=== PATIENT | male | born 1950 | race Hispanic/Latino ===

== ENCOUNTER 2023-08-19 05:49 | Day surgery (SDC) | payer OTHER ==
[2023-08-18 11:00] VITALS: BP 125/76; PULSE 82; RESP 19
[2023-08-19] VITALS (11 sets, daily range): BP systolic 89–124; BP diastolic 59–85; PULSE 52–62; RESP 13–20
[~2023-08-19] VITALS: Ht 167.6 cm; Wt 85.0 kg
[~2023-08-19 05:49] MED LIST: CHOL500051 PO; DULO30CA52 PO; FURO20TA4 PO; LISI10TA24 PO; METO-409 PO; SIMV-46 PO; TAMS-1 PO
[2023-08-19] MEDS ORDERED: 0.9%NACL 1000ML 1,000 ML IV ONE (06:21)
[2023-08-19] MEDS ORDERED: PROPOFOL 10 MG/ML 20ML VIAL IV ONE (07:51)
[2023-08-19] MEDS ORDERED: LIDOCAINE HCL 1% 20 ML VIAL ONE (07:52)
== END 2023-08-19 09:05 | disposition home or self-care (01) ==
LOC: ENDO 05:49 → DAH 05:49 → ENDO 09:05
PROVIDERS: ATTEND Internal Medicine Gastroenterology
DX: R13.10 Dysphagia, unspecified (principal); K21.9 Gastro-esophageal reflux disease without esophagitis; K31.89 Other diseases of stomach and duodenum; I10 Essential (primary) hypertension; E78.5 Hyperlipidemia, unspecified; F41.9 Anxiety disorder, unspecified; M19.90 Unspecified osteoarthritis, unspecified site; K64.0 First degree hemorrhoids; Z90.49 Acquired absence of other specified parts of digestive tract; Z98.890 Other specified postprocedural states; Z86.010 Personal history of colon polyps
CPT/HCPCS: 43239; 43248; J7030 ×2; J2704; A4620; A4215; A4223; A4222; A4221; A4663; A4606; J3490

== ENCOUNTER → 2024-01-07 | Outpatient (CLI) | payer OTHER | END | disposition home or self-care (01) | LOC: RAH 12:44 | PROVIDERS: ATTEND Student in an Organized Health Care Education/Training Program | DX: M47.26 Other spondylosis with radiculopathy, lumbar region (principal); M51.16 Intervertebral disc disorders with radiculopathy, lumbar region; M48.061 Spinal stenosis, lumbar region without neurogenic claudication; M24.28 Disorder of ligament, vertebrae | CPT/HCPCS: 72148 ==

== ENCOUNTER → 2024-09-04 | Outpatient (CLI) | payer OTHER ==
[2024-09-04 15:38] LABS: CREATININE 0.9 mg/dL (0.5-1.3); POTASSIUM 3.8 mmol/L (3.5-5.1)
== END | disposition home or self-care (01) ==
LOC: LAB 14:28
PROVIDERS: ATTEND Internal Medicine Cardiovascular Disease
DX: Z01.812 Encounter for preprocedural laboratory examination (principal); R94.31 Abnormal electrocardiogram [ECG] [EKG]
CPT/HCPCS: 36415; 80048

== ENCOUNTER → 2024-09-20 | Outpatient (CLI) | payer OTHER ==
[~2024-09-20] MED LIST changes: +IOHEXOL 350 MG/ML 100ML INFUS..BTL IV ONE
--- NOTE | 2024-09-20 14:59 | HMCIMG ---
CT CARDIAC ANGIO W/CONT. CCTA HISTORY: Abnormal EKG COMPARISON: None TECHNIQUE: Multiple sequential axial images of the chest were obtained along with the CT angiogram of the chest study. Patient was given 100 cc of Omnipaque through intravenous route. FINDINGS: There is no evidence of pulmonary nodule or parenchymal disease. No pleural effusion or pericardial effusion is seen. There is no evidence of pneumothorax. There are normal size mediastinal and hilar lymph nodes. The heart is not enlarged. Degenerative changes of the thoracolumbar spine are present. IMPRESSION: 1. No evidence of pulmonary nodule or effusion is seen. Please see CT angiogram report of coronary arteries.
--- NOTE | 2024-09-26 07:42 | CARDIOLOGY ---
RAD REPORT: CORNARY CT ANGIO RADIOLOGY REPORT: CORONARY CT ANGIOGRAPHY DATE: Sep 26, 2024 QUALITY: Excellent CLINICAL HISTORY AND INDICATION: [chest pain ] TECHNIQUE: After obtaining a preliminary acid extractor image, contrast imaging performed on an Aquillon [id number] scanner. A dedicated, limited window, coronary imaging protocol was used, with single breath-hold, retrospective ECG gating, and automated arrhythmia rejection. 100 cc of low osmolar contrast agent: Omnipaque 350 was delivered via a 18-gauge IV catheter in the right antecubital fossa, using a power injector and followed by 60 cc of normal saline bolus as a chaser. Collimated images were reformatted at 0.5 mm intervals, and sent to an offline independent workstation for interpretation, using 3D anatomic reconstructions: Curved multiplanar reconstructions, maximum intensity projections, and multiplanar imaging. No metoprolol was administered prior to scanning due to low baseline heart rate. No SL nitroglycerin was given. CORONARY ARTERY DESCRIPTIONS: The coronary arteries arise in normal position. Left main coronary artery: Normal caliber vessel that bifurcates into the LAD and LCx. There is calcified plaque in the distal left main with 20% stenosis. Left anterior descending coronary artery: Normal caliber vessel and gives rise to diagonal and septal branches. There is calcified plaque in the proximal LAD with 20-30% stenosis. There is mixed calcified and noncalcified plaque in the mid LAD with 50% stenosis. Left circumflex coronary artery: Normal caliber, nondominant and gives rise to a large OM branch. There is non-calcified plaque in the proximal LCx with 90% stenosis. Right coronary artery: Large, dominant vessel giving rise to the PL and PDA branches. There is mixed calcified and noncalcified plaque in the distal RCA with 20-30% stenosis. CAD-RADs: 4A, severe stenosis. Recommend left heart catheterization. Findings reported to Dr Bonilla and his team. Thoracic Aorta: Normal diameter. Neetu Quintana MD Cardiovascular Disease [facility] [address] NEETU QUINTANA MD Sep 26, 2024 07:42
== END | disposition home or self-care (01) ==
LOC: RAH 11:50
PROVIDERS: ATTEND Internal Medicine Cardiovascular Disease
DX: R07.9 Chest pain, unspecified (principal); R94.31 Abnormal electrocardiogram [ECG] [EKG]; M47.815 Spondylosis without myelopathy or radiculopathy, thoracolumbar region
CPT/HCPCS: 75574; Q9967

== ENCOUNTER 2024-10-30 06:44 | Day surgery (SDC) | payer OTHER ==
[2024-10-26 12:08] LABS: BASOPHILS # (AUTO) 0.05 K/uL (0.00-0.20); BASOPHILS % (AUTO) 1.1 % (0.0-5.0); EOSINOPHILS % (AUTO) 4.3 % (0.0-8.0); HEMATOCRIT 46.6 % (42-54); IMMATURE GRANULOCYTE ABSOLUTE 0.06 K/uL (0-1); LYMPHOCYTES # (AUTO) 1.2 K/uL (1.0-4.8); LYMPHOCYTES % (AUTO) 26.8 % (21.0-51.0); MEAN CORPUSCULAR HEMOGLOBIN 30.4 pg (27.0-33.0); MEAN CORPUSCULAR VOLUME 92.1 fL (79-99); MONOCYTES # (AUTO) 0.3 K/uL (0.1-1.0); MONOCYTES % (AUTO) 7.4 % (3.0-13.0); NEUTROPHILS # (AUTO) 2.7 K/uL (1.8-7.7); NEUTROPHILS % (AUTO) 59.1 % (40.0-77.0); PLATELET COUNT (AUTO) 186 K/uL (130-400); RED BLOOD CELL COUNT(AUTO) 5.06 MIL/uL (4.50-6.20); RED CELL DISTRIBUTION WIDTH 12.8 % (11.0-15.5); WHITE BLOOD COUNT (AUTO) 4.6 K/uL (4.8-10.8)
[2024-10-26 12:11] LABS: APPEARANCE,URINE CLEAR (CLEAR); BILIRUBIN,URINE NEGATIVE (NEGATIVE); COLOR,URINE LIGHT-YELLOW (YELLOW); GLUCOSE, URINE (UA) NEGATIVE (NEGATIVE); KETONES,URINE NEGATIVE (NEGATIVE); LEUKOCYTE ESTERASE ,URINE NEGATIVE Leu/uL (NEGATIVE); NITRATE,URINE NEGATIVE (NEGATIVE); PROTEIN,URINE NEGATIVE (NEGATIVE); UROBILINOGEN,URINE 0.2 mg/dL (0.2-1.0)
[2024-10-26 12:12] VITALS: BP 114/64; PULSE 69; RESP 14; TEMP 98.4
[2024-10-26 12:19] LABS: ADD UA MICROSCOPIC YES
[2024-10-26 12:24] LABS: INR 1.03 (0.85-1.15); MUCUS,URINE RARE LPF (None Seen); PROTHROMBIN TIME 11.5 SEC (9.6-11.6); RBC,URINE 0-1 /HPF (0-1); WBC,URINE 0-1 /HPF (0-1)
[2024-10-26 12:29] LABS: CREATININE 0.9 mg/dL (0.5-1.3)
[2024-10-26 12:36] LABS: B-TYPE NATRIURETIC PEPTIDE 9 pg/mL (0-100)
--- NOTE | 2024-10-26 13:49 | EKG ---
[facility] Test Date: 2024-10-26 Test Time: 12:41:56 Pat Name: FRANCOISE SOLANO Department: [facility] Room: Gender: M Seat Nailer: [id number] : 1950 Requested By: FRANCOISE BRADSHAW Order Number: [id number] Reading MD: Waqar Frazier Measurements Intervals [place] Rate: 60 P: 56 AR: 179 QRS: -50 QRSD: 96 T: 41 QT: 387 QTc: 387 Interpretive Statements Sinus rhythm Left anterior fascicular block Low voltage, precordial leads No previous ECG available for comparison RSR' IN V1 OR V2, PROBABLY NORMAL VARIANT Electronically Signed On 10-26-2024 16:20:54 SENIOR FIELD SERVICE ENGINEER by Waqar Frazier Please click the below link to view image of tracing.
--- NOTE | 2024-10-26 17:09 | HMCIMG ---
CHEST 1VW HISTORY: Preop COMPARISON: None FINDINGS: A frontal projection of the chest was obtained. Prominent interstitial markings are seen with possible superimposed infiltrates. The heart is normal in size. Degenerative changes are seen. No evidence of aortic calcification is seen. IMPRESSION: 1. Prominent interstitial markings are seen with possible superimposed infiltrates.
--- NOTE | 2024-10-27 13:16 | NUR ---
report reported cxr to garcía schafer. ok to proceed
[2024-10-30] VITALS (11 sets, daily range): BP systolic 103–125; BP diastolic 60–77; PULSE 53–69; RESP 11–18; TEMP 97–97.7
[~2024-10-30] VITALS: Ht 167.6 cm; Wt 83.2 kg
[~2024-10-30 06:44] MED LIST changes: -CHOL500051 PO; -FURO20TA4 PO; +GABA300S3 PO; -IOHEXOL 350 MG/ML 100ML INFUS..BTL IV ONE; +ISOS30TA92 PO; +MECL25TA39 PO; +MELA5CAP PO; +METF-444 PO; +SUCR1TAB2 PO
[2024-10-30] MEDS: 0.9%NACL 1000ML 1,000 ML IV SCH (07:44)
[2024-10-30] MEDS ORDERED: IOHEXOL 350 MG/ML 100ML INFUS..BTL IV ONE (11:27)
[2024-10-30] MEDS ORDERED: LIDOCAINE HCL 400MG/20ML VIAL ONE (11:27)
[2024-10-30] MEDS ORDERED: HEParin 10,000 UNIT/10ML (1,000 UNIT/ML) VIAL ONE (11:28)
[2024-10-30] MEDS ORDERED: NITROGLYCERIN 50MG VIAL ONE (11:28)
[2024-10-30] MEDS ORDERED: HEParin-NS 1,000 UNIT/500 ML 1,000 ML IV ONE (11:28)
[2024-10-30] MEDS ORDERED: FENTanyl CITRate PF 50 MCG/1 ML 2ML VIAL ONE (11:55)
[2024-10-30] MEDS ORDERED: MIDAZOLAM HCL 1 MG/ML 2ML VIAL ONE (11:55)
[2024-10-30] MEDS ORDERED: BIVALIRUDIN 250 MG/VIAL IV ONE (11:59)
[2024-10-30] MEDS ORDERED: ATROPINE 1MG SYG IVP ONE (12:22)
[2024-10-30] MEDS ORDERED: ASPIRIN 81MG CHEW TAB ONE (13:05)
[2024-10-30] MEDS ORDERED: cloPIDOgrel 300MG TAB ONE (13:05)
--- NOTE | 2024-10-30 13:16 | PRN ---
PROCEDURES: 1. Right common femoral arterial sheath placement. 2. Selective coronary angiogram. 3. Left heart catheterization. 4. Left ventriculogram. 5. Angioplasty and stent placement to mid left circumflex artery with the use of a 3 mm x 22 mm Medtronic resolute francisco stent deployed to 3.10 mm 6. Conscious sedation INDICATION: Unstable angina Abnormal coronary CT angiogram DESCRIPTION OF PROCEDURE: The patient was brought to the catheterization suite and prepped and draped in sterile fashion. IV was started, and not already in place and both groins were exposed for arterial access. 1% lidocaine was used f or local anesthesia and then a micropuncture kit was used to gain access once free-flowing blood was seen, modified Seldinger technique was utilized to place a 6 Welsh sheath into the right common femoral artery. Next, preformed JL4 and JR 4 catheters were used to selectively engage the [place] coronary vessels and multiple hand contrast injections were performed in different views to define the coronary anatomy. See interventional report below Next a the end of the case, a 6 Welsh angled pigtail was used to cross the aortic valve. Pressure measurements were obtained in the left ventriculogram was in a 30 ANTONIO position. Next, pullback method was performed. FINDINGS: The left main artery bifurcates into LAD and left circumflex and is free of any significant disease with calcification noted. The proximal mid LAD has calcification noted. There are multiple diagonal branch vessels that, high off the LAD with the areas of stenosis in the mid LAD of approximately 40-50% and distal LAD of 50-60% The left circumflex artery was a large vessel nondominant system with a 99% stenosis noted in its mid section. The right coronary artery is a dominant system giving rise to the PDA and RPL. There was no evidence of significant coronary atherosclerosis in the RCA or daughter branches. LVEDP is a 12 mm Hg There was no evidence of aortic stenosis or mitral regurgitation. Ejection fractions estimated at 60% Resting wall motion appears to be normal INTERVENTIONAL REPORT: After diagnostic angiography was performed it was felt intervention should be done to left circumflex artery therefore a six Welsh Q 3.5 guide catheter was placed in the left coronary system. Next a 0.014 in run-through wire was placed in the distal ongoing obtuse marginal branch. Next a 2.5 mm x 15 mm balloon was then used to pre dilate the mid left circumflex lesion. This was taken up to 14 atmospheres for approximately 30 seconds. This was then removed and a 3 mm x 22 mm resolute francisco stent was then placed into the mid LAD and deployed to 3.10 mm. Follow up contrast injection well events of dissection or perforation with LINH three flow noted in vessel. At end of case sheath shot was done in Perclose device was used for closure of arteriotomy site. RECOMMENDATIONS: Patient will be monitored in the outpatient setting for 5 hours IV hydration will be noted. No heavy lifting 5 lb or greater for three days No driving for 24 hours Discharge home at approximately 6:00 p.m. Follow up with Dr. Bonilla in two weeks Continue dual antiplatelet therapy uninterrupted for 12 months FRANCOISE BONILLA MD Oct 30, 2024 13:16
[2024-10-30] MEDS ORDERED: DEXTROSE 50%-WATER 50 ML DISP.SYRIN IV PRN (13:30)
[2024-10-30] MEDS ORDERED: NITROGLYCERIN 0.4 MG SL TAB SL PRN (13:30)
[2024-10-30] MEDS ORDERED: GLUCAGON 1MG KIT 1 MG ML IM PRN (13:30)
[2024-10-30] MEDS ORDERED: 0.9%NACL 1000ML 1,000 ML IV SCH (13:30)
[2024-10-30] MEDS ORDERED: metoPROLOL tartRATE 1 MG/ML 5ML VIAL IV PRN (13:30)
--- NOTE | 2024-10-30 13:45 | NUR ---
VOIDED VOIDED 200 CC IN URINAL. CLEAR, YELLOW URINE.
--- NOTE | 2024-10-30 14:15 | NUR ---
RECEIVED SBAR REPORT FROM CHELSEA BRADSHAW LVN AT THIS TIME, WILL ASSUME CARE OF PATIENT. RIGHT GROIN ASSESSED, SOFT, NON-TENDER. DRESSING CLEAN, DRY & INTACT. PATIENT AND SPOUSE AT BEDSIDE REMINDED OF IMPORTANCE OF CONTINUED BEDREST AND MAINTAINING RIGHT LEG STRAIGHT. BOTH VERBALIZED UNDERSTANDING. BED AT LOWEST POSITION, CALL JOHNSON WITHIN REACH.
[2024-10-30] MEDS ORDERED: INSULIN humuLIN R 100 UNIT/ML 3ML SQ SCH (16:30)
[2024-10-31] MEDS ORDERED: cloPIDOgrel 75MG TAB PO SCH (09:00)
== END 2024-10-30 19:15 | disposition home or self-care (01) ==
LOC: DAH 06:44
PROVIDERS: ATTEND Internal Medicine Cardiovascular Disease
DX: R93.1 Abnormal findings on diagnostic imaging of heart and coronary circulation (principal); I25.110 Atherosclerotic heart disease of native coronary artery with unstable angina pectoris; I25.83 Coronary atherosclerosis due to lipid rich plaque; I10 Essential (primary) hypertension; I25.84 Coronary atherosclerosis due to calcified coronary lesion; E78.5 Hyperlipidemia, unspecified; E11.9 Type 2 diabetes mellitus without complications; E66.9 Obesity, unspecified; M19.90 Unspecified osteoarthritis, unspecified site; R07.9 Chest pain, unspecified; R06.02 Shortness of breath; R94.31 Abnormal electrocardiogram [ECG] [EKG]; I73.9 Peripheral vascular disease, unspecified; Z79.84 Long term (current) use of oral hypoglycemic drugs; Z90.49 Acquired absence of other specified parts of digestive tract; Z87.898 Personal history of other specified conditions; Z82.49 Family history of ischemic heart disease and other diseases of the circulatory system; Z83.3 Family history of diabetes mellitus; Z88.8 Allergy status to other drugs, medicaments and biological substances; Z96.652 Presence of left artificial knee joint; Z68.29 Body mass index [BMI] 29.0-29.9, adult; Z79.899 Other long term (current) drug therapy
CPT/HCPCS: 80048; 83880; 85025; 85610; 85730; 81001; 36415; 71045; 93005; 93458; 82948 ×2; A4223 ×3; C1887; C1894 ×3; C1725; C1874; C1760; C1769; Q9965 ×2; J3010; J3490 ×2; J7030; J2250; J1644; J0583; Q9967; A4215; A4222; A4221; A4663; A4216; A4606; C9600; 99156; 99157; J0461

== ENCOUNTER → 2024-11-02 | Outpatient (CLI) | payer OTHER ==
--- NOTE | 2024-11-06 13:57 | HMCSR ---
APPROVED REPORT EXAM: Two-dimensional and M-mode echocardiogram with Doppler and color Doppler. INDICATION ICD: R07.9 Chest pain Abnormal ECG 2D Dimensions RVDd2.9 cmLVEF(%)57.0 (>50%)LVED Vol(simp.)95.0 mL IVSd1.2 (0.7-1.1cm)FS(%)30 %LVES Vol(simp.)40.0 mL LVDd4.8 (3.8-5.6cm)Ao Root(2D)3.5 (2.0-3.7cm)LVEF(%, simp.)58 % PWd1.2 (0.7-1.1cm)LVOT diam2.2 (1.8-2.4cm)LA ESV INDEX (BP)18.12 mL/m2 LVDs3.3 (2.5-4.0cm)IVC diam1.6 cm Deformation Strain Apical 4-15.6 % Apical 2-15.9 % Apical 3-16.0 % Global Strain-15.8 % Aortic Valve AoV Vmax1.5 m/Anusha Peak GR8.7 mmHgLVOT Vmax1.0 m/s AoV VTI0.3 mAo Mean GR5.1 mmHgLVOT VTI0.20 m VANNA (VMAX)2.6 cm2Al P1/2T831 msAVA (VTI) 2.6 cm2 Mitral Valve MV E Vmax62.8 cm/sDECEL Lvsj377 ms MV A Vmax80.9 cm/sP 1/2 T80 ms E/A ratio0.8MVA (PHT)2.8 cm2 TDI E/E' Ohcvyu56.6E/E' Lbavvwm52.3 Pulmonary Valve PV Vmax1.1 m/sPV VTI0.23 mPV Mean GR2 mmHg PV Peak GR5.2 mmHg Tricuspid Valve TR Vmax2.0 m/sRAP (EST) 3 wsEdURBU97.4 mmHg TR Peak GR16.4 mmHg Left Ventricle The left ventricle structure and function is normal. There is normal LV segmental wall motion. There is mild concentric left ventricular hypertrophy. LVEF is 55-60%. Grade 1 diastolic dysfunction Right Ventricle The right ventricle is normal size. The right ventricular systolic function is normal. Atria The left atrium size is normal. The right atrium size is normal. Aortic Valve Aortic valve is trileaflet. Aortic valve leaflets are sclerotic but open well. Trace aortic regurgita tion. There is no aortic valvular stenosis. Mitral Valve Mitral valve leaflets are mildly sclerotic but open well. Mitral regurgitation is trace. There is no mitral valve stenosis. Tricuspid Valve The tricuspid valve leaflets appear normal. There is trace tricuspid regurgitation. Pulmonic Valve Pulmonic valve is not well visualized. There is trace pulmonic valvular regurgitation. Great Vessels The aortic root is normal in size. The IVC is normal in size and collapses >50% with inspiration. Pericardium No pericardial effusion. Conclusion LVEF is 55-60%. There is normal LV segmental wall motion. Grade 1 diastolic dysfunction Aortic valve is trileaflet. Aortic valve leaflets are sclerotic but open well.
== END | disposition home or self-care (01) ==
LOC: SHCH 11:27
PROVIDERS: ATTEND Internal Medicine Cardiovascular Disease
DX: I08.0 Rheumatic disorders of both mitral and aortic valves (principal); R07.9 Chest pain, unspecified; R94.31 Abnormal electrocardiogram [ECG] [EKG]
CPT/HCPCS: 93306; 93356

== ENCOUNTER → 2024-11-13 | Outpatient (CLI) | payer OTHER ==
--- NOTE | 2024-11-17 08:11 | HMCSR ---
APPROVED REPORT Laterality: Bilateral Indications PVD VELOCITY AND DOPPLER WAVEFORM ANALYSIS STEEL RULE INSPECTOR (R) 93.8cm/sec, Triphasic, STEEL RULE INSPECTOR (L) 115.8cm/sec, Triphasic, Prof Fem Art. (R) 62.0cm/sec, Biphasic, Prof Fem Art. (L) 79.0cm/sec, Biphasic, Fem Art Prox. (R) 93.8cm/sec, Triphasic, Fem Art Prox. (L) 82.5cm/sec, Triphasic, Fem Art Mid. (R) 85.6cm/sec, Triphasic, Fem Art Mid. (L) 86.1cm/sec, Triphasic, Fem Art Dist (R) 87.3cm/sec, Triphasic, Fem Art Dist. (L) 89.7cm/sec, Triphasic, Pop Art(AK) (R) 80.7cm/sec, Triphasic, Pop Art (AK) (L) 87.9cm/sec, Triphasic, Pop Art (Fossa)(R) 98.0cm/sec, Triphasic, Pop Art (Fossa) (L) 81.0cm/sec, Triphasic, Pop Art(BK) (R) 79.9cm/sec, Triphasic, Pop Art (BK) (L) 79.9cm/sec, Triphasic, PEDIATRIC ONCOLOGY NURSE Prox. (R) 59.4cm/sec, Triphasic, PEDIATRIC ONCOLOGY NURSE Prox. (L) 63.5cm/sec, Triphasic, PEDIATRIC ONCOLOGY NURSE Mid. (R) 49.0cm/sec, Triphasic, PEDIATRIC ONCOLOGY NURSE Mid. (L) 54.0cm/sec, Triphasic, PEDIATRIC ONCOLOGY NURSE Dist. (R) 58.7cm/sec, Triphasic, PEDIATRIC ONCOLOGY NURSE Dist. (L) 53.8cm/sec, Triphasic, Per Art Prox. (R) 25.2cm/sec, Biphasic, Per Art Prox. (L) 28.5cm/sec, Biphasic, Per Art Mid. (R) 32.0cm/sec, Biphasic, Per Art Mid. (L) 29.0cm/sec, Biphasic, Per Art Dist. (R) 58.7cm/sec, Biphasic, Per Art Dist. (L) 29.0cm/sec, Biphasic, DEEPTI Prox. (R) 59.0cm/sec, Biphasic, DEEPTI Prox. (L) 75.9cm/sec, Triphasic, DEEPTI Mid. (R) 32.0cm/sec, Biphasic DEEPTI Mid. (L) 46.0cm/sec, Triphasic, DEEPTI Dist. (R) 45.8cm/sec, Biphasic, DEEPTI Dist. (L) 42.2cm/sec, Triphasic, Technologist Impression No evidence of significant arterial insufficiency of bilateral lower extremities. Conclusion No evidence of significant arterial insufficiency of bilateral lower extremities. Conclusion No evidence of significant arterial insufficiency of bilateral lower extremities.
== END | disposition home or self-care (01) ==
LOC: SHCH 12:39
PROVIDERS: ATTEND Internal Medicine Cardiovascular Disease
DX: I73.9 Peripheral vascular disease, unspecified (principal)
CPT/HCPCS: 93925

== ENCOUNTER → 2025-06-21 | Outpatient (CLI) | payer OTHER ==
[~2025-06-21] MED LIST changes: -TAMS-1 PO; +TAMS-55 PO
[2025-06-21 09:42] LABS: IMMATURE GRANULOCYTE ABSOLUTE 0.05 K/uL (0-1); NUCLEATED RED BLOOD CELLS 0.0 % (0.0-0.19); PLATELET COUNT (AUTO) 166 K/uL (130-400); RED BLOOD CELL COUNT(AUTO) 5.01 MIL/uL (4.50-6.20); RED CELL DISTRIBUTION WIDTH 12.9 % (11.0-15.5); WHITE BLOOD COUNT (AUTO) 4.4 K/uL (4.8-10.8)
[2025-06-21 09:57] LABS: ASPARTATE AMINOTRANSFERASE 22.0 U/L (10-37); CREATININE 0.9 mg/dL (0.5-1.3); GLOMERULAR FILTR. RATE CALC 89.0 mL/min (>90); GLUCOSE,RANDOM 99.0 mg/dL (70-105); SODIUM SERUM 140.0 mmol/L (136-145); TOTAL PROTEIN, SERUM 7.1 g/dL (6.0-8.3); UREA NITROGEN, BLOOD 16.0 mg/dL (7-18)
== END | disposition home or self-care (01) ==
LOC: LAB 08:58
PROVIDERS: ATTEND Internal Medicine Gastroenterology
DX: R10.10 Upper abdominal pain, unspecified (principal)
CPT/HCPCS: 36415; 80053; 85025

== ENCOUNTER → 2025-06-28 | Outpatient (CLI) | payer OTHER ==
[~2025-06-28] MED LIST changes: +IOHEXOL-350 75 ML VIAL IV ONE
--- NOTE | 2025-06-28 09:50 | HMCIMG ---
EXAM: CT Abdomen and Pelvis with and without IV contrast CLINICAL HISTORY: ABDOMINAL PAIN TECHNIQUE: Axial computed tomography images of the abdomen and pelvis with and without intravenous contrast. CONTRAST: with and without intravenous contrast. COMPARISON: None provided. FINDINGS: LUNG BASES: The lung bases appear clear. No pleural effusions are seen. LIVER: Unremarkable. GALLBLADDER AND BILE DUCTS: Gallbladder not well-visualized. PANCREAS: Unremarkable. SPLEEN: Unremarkable. ADRENAL GLANDS: Unremarkable. KIDNEYS, URETERS, AND BLADDER: The kidneys appear within normal limits. There is no hydronephrosis or hydroureter. No urinary calculi are seen. STOMACH AND BOWEL: Colonic diverticulosis. Fat-containing right inguinal hernia. APPENDIX: No evidence of acute appendicitis on CT examination. PERITONEUM: No free fluid. No free air. LYMPH NODES: No lymphadenopathy is evident. REPRODUCTIVE: Unremarkable as visualized. VASCULATURE: No evidence of abdominal aortic aneurysm. BONES: No aggressive appearing osseous lesion. No acute osseous pathology evident. MISCELLANEOUS: Prostamegaly. Small fat-containing umbilical hernia. So IMPRESSION: 1. No acute intraabdominal or pelvic pathology. 2. Colonic diverticulosis. 3. Right inguinal hernia containing fat. 4. Small fat-containing umbilical hernia. 5. Prostatomegaly. /Dixon
== END | disposition home or self-care (01) ==
LOC: RAH 08:43
PROVIDERS: ATTEND Internal Medicine Gastroenterology
DX: K57.30 Diverticulosis of large intestine without perforation or abscess without bleeding (principal); K40.90 Unilateral inguinal hernia, without obstruction or gangrene, not specified as recurrent; K42.9 Umbilical hernia without obstruction or gangrene; N40.0 Benign prostatic hyperplasia without lower urinary tract symptoms; R10.10 Upper abdominal pain, unspecified
CPT/HCPCS: 74178; Q9967